=== PATIENT | female | born 1990 | race Asian ===

== ENCOUNTER 2022-02-19 17:01 | Emergency (ER) | payer OTHER ==
[~2022-02-19] VITALS: Ht 167.6 cm; Wt 110.7 kg
[2022-02-19 17:05] VITALS: BP 119/75; TEMP 97.9
== END 2022-02-19 19:15 | disposition home or self-care (01) ==
LOC: ED 17:01
DX: R10.31 Right lower quadrant pain (principal); Z76.5 Malingerer [conscious simulation]; Z53.29 Procedure and treatment not carried out because of patient's decision for other reasons
CPT/HCPCS: 81000; 81025; 82805; 87077; 87086; 87088; 87186; 96360; 96375; 96376; 99284; J1170; J1200; J2270; J2405

== ENCOUNTER 2022-04-30 01:28 | Emergency (ER) | payer OTHER ==
[~2022-04-30] VITALS: Ht 167.6 cm; Wt 118.8 kg
[2022-04-30 01:38] VITALS: TEMP 98.1
[2022-04-30 03:43] VITALS: BP 159/89
== END 2022-04-30 03:43 | disposition left against medical advice (07) ==
LOC: ED 01:28
DX: N23 Unspecified renal colic (principal); Z53.29 Procedure and treatment not carried out because of patient's decision for other reasons
CPT/HCPCS: 80307; 81000; 81025; 87077; 87086; 87088; 87186; 96372; 99283; J2175; J2550